=== PATIENT | female | born 1985 | race Hispanic/Latino ===

== ENCOUNTER 2021-05-12 11:26 | Outpatient (CLI) | payer BC ==
[2021-05-12 12:27] LABS: Hemoglobin 13.3 g/dL (12.0-15.5); Mean Corpuscular HGB CONC 33.9 g/dL (32.0-36.0); Mean Corpuscular Hemoglobin 29.5 pg (27.0-33.0); Mean Corpuscular Volume 86.9 fl (81.6-98.3); Platelet Count 210 10x3/uL (150-450); RBC Distribution Width 13.2 % (11.5-14.5); Red Blood Cell (RBC) Count 4.51 10x6/uL (3.90-5.03); White Blood Cell (WBC) Count 7.8 10x3/uL (3.5-10.5)
[2021-05-12 12:49] LABS: INR-International Normal Ratio 0.9; PTT 24.2 sec (22.0-33.0); Prothrombin Time 10.4 sec (9.5-12.1)
[2021-05-12 12:51] LABS: Anion Gap 15 mmol/L (10-20); BUN (Urea Nitrogen) 18 mg/dL (7.0-18.7); Calc. Creatinine Clearance 0 mL/min (70-130); Calcium 9.9 mg/dL (7.8-10.44); Carbon Dioxide 22 mmol/L (22-29); Chloride 105 mmol/L (98-107); Glucose 86 mg/dL (70-105); Potassium 3.8 mmol/L (3.5-5.1); Sodium 138 mmol/L (136-145)
[2021-05-12 21:49] LABS: SARS-CoV-2 PCR by NAA Not Detected (NotDetected)
== END 2021-05-12 11:27 | disposition home or self-care (01) ==
LOC: LABBT 11:26
PROVIDERS: ATTEND Surgery
DX: Z01.818 Encounter for other preprocedural examination (principal); M51.16 Intervertebral disc disorders with radiculopathy, lumbar region; Z20.822 Contact with and (suspected) exposure to COVID-19
CPT/HCPCS: 80048; 85027; 85610; 85730; 93005; 93010; U0003; U0005

== ENCOUNTER 2021-05-15 08:19 | Observation (INO) | payer BC ==
[2021-05-15] MEDS ORDERED: ceFAZolin 2 GM/DEX 5% 100 ML BAG ONE (08:56)
[2021-05-15] MEDS ORDERED: Midazolam HCl 2 mg/2 ml Vial ONE (09:45)
[2021-05-15] MEDS ORDERED: Scopolamine 1.5 mg/72 hour Patch ONE (09:45)
[2021-05-15] MEDS ORDERED: Thrombin 5000 UNITS/5 ML VIAL ONE (09:57)
[2021-05-15] MEDS ORDERED: Fentanyl 250 MCG/5 ML VIAL ONE (10:05)
[2021-05-15] MEDS ORDERED: Clindamycin/D5W 900 mg/50 ml Premix Bag ONE (10:15)
[2021-05-15] MEDS ORDERED: Levofloxacin 500 mg/D5W 100 ml Premix Bag ONE (10:15)
[2021-05-15] MEDS ORDERED: PROPOFOL 200 MG/20 ML VIAL ONE (10:31)
[2021-05-15] MEDS ORDERED: Dexamethasone 20 MG/5 ML VIAL ONE (10:31)
[2021-05-15] MEDS ORDERED: Ondansetron PF 4 MG/2 ML Vial ONE (10:31)
[2021-05-15] MEDS ORDERED: Rocuronium Bromide 10 MG/ML (10ML VIAL) ONE (10:31)
[2021-05-15] MEDS ORDERED: Glycopyrrolate 0.2 MG/ML 5 ML SYRINGE ONE (10:31)
[2021-05-15] MEDS ORDERED: Ketorolac Tromethamine 30 MG/ML VIAL ONE (10:31)
[2021-05-15] MEDS ORDERED: Lidocaine 1% PF 5 ML VIAL ONE (10:31)
[2021-05-15] MEDS ORDERED: HYDROmorphone 2 MG/ML VIAL SLOW IVP PRN (11:54)
[2021-05-15] MEDS ORDERED: PACU-Morphine 4MG/ML VIAL SLOW IVP PRN (11:54)
[2021-05-15] MEDS ORDERED: Promethazine HCl 25 MG/ML VIAL IM PRN (11:54)
[2021-05-15] MEDS ORDERED: Morphine Sulfate 2 MG/ML SYRINGE SLOW IVP PRN (11:54)
[2021-05-15] MEDS ORDERED: Meperidine HCl/PF 25 MG/ML VIAL SLOW IVP PRN (11:54)
[2021-05-15] MEDS ORDERED: Promethazine HCl 25 MG/ML VIAL IVPB PRN (11:54)
[2021-05-15] MEDS ORDERED: Ondansetron HCl/PF 4 MG/2 ML Vial IVP PRN (11:54)
[2021-05-15] MEDS ORDERED: tiZANidine HCl 4 MG TAB PO PRN (12:17)
[2021-05-15] MEDS ORDERED: Acetaminophen/Codeine 30-300mg Tablet PO PRN (12:17)
[2021-05-15] MEDS ORDERED: traMADol HCl 50 MG TAB PO PRN (12:17)
[2021-05-15] MEDS ORDERED: Acetaminophen 325 MG TAB PO PRN (12:17)
[2021-05-15] MEDS ORDERED: Morphine 2 MG/ML VIAL SLOW IVP PRN (12:17)
[2021-05-15] MEDS ORDERED: Fentanyl 100 MCG/2 ML VIAL ONE (12:26)
[2021-05-15] MEDS ORDERED: HYDROmorphone 2 MG/ML VIAL ONE (12:26)
[2021-05-15 14:10] VITALS: BMI 30.7
[2021-05-15] MEDS: Sodium Chloride 0.9% 1,000 ML IV SCH (14:52)
[2021-05-15] MEDS ORDERED: ceFAZolin Sodium/D5W 2 GM in Premix Bag 1 BAG IVPB SCH (17:00)
[2021-05-15] MEDS: Clindamycin/D5W 900 MG in Premix Bag 1 BAG IVPB SCH (18:19)
[2021-05-15] MEDS: HYDROcodone/Acetaminophen 7.5/325 mg Tablet PO PRN (22:41)
[2021-05-16] MEDS: Clindamycin/D5W 900 MG in Premix Bag 1 BAG IVPB SCH (03:15)
[2021-05-16] MEDS: Sodium Chloride 0.9% 1,000 ML IV SCH (04:53)
[2021-05-16 07:57] VITALS: TEMP 98.6
[2021-05-16] MEDS: HYDROcodone/Acetaminophen 7.5/325 mg Tablet PO PRN (08:46)
[2021-05-16] MEDS ORDERED: Vit A,C & E/Lutein/Minerals Tablet PO SCH (09:00)
[2021-05-16 11:26] VITALS: BP 94/57
== END 2021-05-16 14:20 | disposition home or self-care (01) ==
LOC: SDC 08:19 → SURG B 12:17
PROVIDERS: ADMIT Surgery; ATTEND Surgery
PROC: 01NB0ZZ Release Lumbar Nerve, Open Approach (ICD-10-PCS; principal; 2021-05-15)
PROC: 0SB20ZZ Excision of Lumbar Vertebral Disc, Open Approach (ICD-10-PCS; 2021-05-15)
DX: M51.17 Intervertebral disc disorders with radiculopathy, lumbosacral region (principal); Z88.0 Allergy status to penicillin; Z88.1 Allergy status to other antibiotic agents
CPT/HCPCS: 76000; 96365; 96367; 96376; G0378; J1100; J1170; J1885; J1956; J2250; J2405; J2704; J3010; J3370; J3490; J7050